=== PATIENT | female | born 1970 ===

== ENCOUNTER 2017-09-15 06:00 | Day surgery (SDC) | payer OTHER ==
[2017-09-05 11:01] VITALS: BMI 24.0
[2017-09-15] MEDS ORDERED: Lactated Ringer's 1,000 ML IV ONE (07:00)
[2017-09-15] MEDS ORDERED: ePHEDrine 50 mg/ml Inj ONE (07:11)
[2017-09-15] MEDS ORDERED: Propofol 10 mg/ml Inj (20 ML) ONE (07:11)
[2017-09-15] MEDS ORDERED: Rocuronium 10 mg/ml (5 ml) ONE (07:11)
[2017-09-15] MEDS ORDERED: Midazolam 2 MG/2 ML VIAL ONE (07:11)
[2017-09-15] MEDS ORDERED: Succinylcholine 200 mg/10 ml Inj IV ONE (07:12)
[2017-09-15] MEDS ORDERED: Phenylephrine 10 mg/ml Inj ONE (07:12)
[2017-09-15] MEDS ORDERED: cefOXitin IV 1 gm in Dextrose 1 GM/50 ML BAG IVPB ONE (07:53)
[2017-09-15] MEDS ORDERED: Oxycodone/Acetaminophen 5/325 mg Tab PO PRN (08:54)
[2017-09-15 08:56] VITALS: RESP 18
[2017-09-15] MEDS ORDERED: Oxycodone/Acetaminophen 5/325 mg Tab PO ONE ×2 (11:25→12:33)
[2017-09-15 12:11] VITALS: O2SAT 98
[2017-09-15 12:31] VITALS: BP 131/74; PULSE 80; TEMP 98.2
== END 2017-09-15 13:15 | disposition home or self-care (01) ==
LOC: H.OPSURG 06:00
PROVIDERS: ATTEND Specialist
DX: N84.0 Polyp of corpus uteri (principal); Z98.51 Tubal ligation status
CPT/HCPCS: 58558; 88305; J0330; J0694; J2001; J2250; J2270; J2370; J2704; J2765; J3010; J7030; J7120